=== PATIENT | female | born 1960 | race Caucasian/White ===

== ENCOUNTER 2021-05-15 19:29 | Inpatient (IN) ==
[2021-05-15 20:06] LABS: Basophils # 0.1 K/mcL (0.0-0.2); Basophils % 0.5 %; Eosinophils # 0.1 K/mcL (0.0-0.6); Eosinophils % 0.4 %; Hematocrit 35.3 % (35.3-44.9); Hemoglobin 11.1 g/dL (11.5-15.4); Immature Granulocytes % 1.7 % (0-4); Lymphocytes # 4.2 K/mcL (0.6-4.6); Lymphocytes % 28.1 %; Mean Corpuscular HGB Conc 31.4 g/dL (31.6-35.5); Mean Corpuscular Hemoglobin 26.4 pg (28.0-33.3); Mean Platelet Volume 10.8 fL (9.4-12.4); Monocytes # 1.6 K/mcL (0.0-1.3); Monocytes % 10.8 %; Neutrophils # 8.7 K/mcL (1.6-8.9); Nucleated Red Blood Cells 0.8 /100 WBC (0); Platelet Count 329 K/mcL (140-400); Red Cell Distribution Width 20.1 % (11.5-14.5); Segmented Neutrophils % 58.5 %; White Blood Count 14.8 K/mcL (4.3-11.1)
[2021-05-15 20:14] LABS: INR 1.7; Prothrombin Time 18.5 Seconds (9.4-12.1)
[2021-05-15 20:17] LABS: VBG HCO3 31 mEq/L (21-27); VBG PCO2 42 mmHg (41-51); VBG PH 7.48 pH Units (7.32-7.42); VBG PO2 141 mmHg (25-50)
[2021-05-15 20:17] LABS: Activated Partial Thrombo Time 31.2 Seconds (26.0-36.0)
[2021-05-15 20:34] LABS: Alanine Aminotransferase 86 Units/L (7-52); Albumin/Globulin Ratio 0.7 (1.1-2.2); Alkaline Phosphatase 122 Units/L (34-104); Aspartate Amino Transferase 43 Units/L (13-39); BUN/Creatinine Ratio 12 (6-26); Bilirubin,Direct 0.6 mg/dL (0.0-0.2); Bilirubin,Indirect 0.6 mg/dL (0.0-1.0); Bilirubin,Total 1.2 mg/dL (0.3-1.0); Blood Urea Nitrogen 10 mg/dL (6-20); Calcium 8.2 mg/dL (8.6-10.3); Carbon Dioxide 31 mEq/L (23-29); Chloride 95 mEq/L (98-107); Globulin 4.4 g/dL (2.4-3.5); Glucose 131 mg/dL (70-105); Osmolality,Calculated 281 (280-300); Potassium 3.3 mEq/L (3.5-5.1); Sodium 135 mEq/L (136-145); Total Protein 7.4 g/dL (6.4-8.9); Troponin I 0.39 ng/mL (< 0.04); eGFR For African Americans > 60 (> 60); eGFR For Non-African Americans > 60 (> 60)
[2021-05-15] MEDS ORDERED: Furosemide 40 MG/4 ML VIAL IVP ONE (21:00)
[2021-05-15 21:02] LABS: Influenza A PCR Negative (Negative); Influenza B PCR Negative (Negative); Resp. Syncytial Virus PCR Negative (Negative)
[2021-05-15 21:11] LABS: SARS-CoV-2 by PCR (In House) Negative (Negative)
[2021-05-15] MEDS ORDERED: Isovue-370 500 ML BOTTLE IVP ONE (21:17)
[2021-05-15] MEDS ORDERED: Vancomycin 1,500 MG/265 ML IV.SOLN IVPB ONE (23:30)
[2021-05-15] MEDS ORDERED: *HR* Heparin 5,000 UNIT/ML VIAL IVP ONE (23:31)
[2021-05-15] MEDS ORDERED: *HR* Heparin 5,000 UNIT/ML VIAL IVP PRN ×2 (23:31)
[2021-05-16] MEDS ORDERED: Naloxone 0.4 MG/ML INJ IVP PRN (01:11)
[2021-05-16] MEDS ORDERED: Perflutren Lipid Microsphere 1.3 ML in 0.9 % Sodium Chloride 8.7 ML IVP PRN (01:56)
[2021-05-16] MEDS: Heparin 25,000UNIT/250ML 1/2NS 25,000 UNIT/250 ML IV.SOLN IVC SCH (02:05)
[2021-05-16] MEDS ORDERED: *HR* Labetalol 20 MG/4 ML SYRINGE IVP PRN (03:17)
[2021-05-16] MEDS ORDERED: *HR* Metoprolol 5 MG/5 ML VIAL IVP ONE ×4 (03:24→04:14)
[2021-05-16] MEDS ORDERED: *HR* Adenosine 6 MG/2 ML SYRINGE IVP ONE ×6 (03:27→04:30)
[2021-05-16 03:29] LABS: Basophils # 0.1 K/mcL (0.0-0.2); Basophils % 0.4 %; Eosinophils # 0.1 K/mcL (0.0-0.6); Eosinophils % 0.5 %; Hematocrit 34.3 % (35.3-44.9); Hemoglobin 10.8 g/dL (11.5-15.4); Immature Granulocytes % 1.7 % (0-4); Lymphocytes # 4.2 K/mcL (0.6-4.6); Lymphocytes % 26.7 %; Mean Corpuscular HGB Conc 31.5 g/dL (31.6-35.5); Mean Corpuscular Hemoglobin 26.1 pg (28.0-33.3); Mean Corpuscular Volume 82.9 fL (83.0-100.0); Mean Platelet Volume 10.2 fL (9.4-12.4); Monocytes # 1.5 K/mcL (0.0-1.3); Monocytes % 9.4 %; Neutrophils # 9.6 K/mcL (1.6-8.9); Nucleated Red Blood Cells 0.8 /100 WBC (0); Platelet Count 307 K/mcL (140-400); Red Blood Count 4.14 M/mcL (3.82-4.97); Segmented Neutrophils % 61.3 %; White Blood Count 15.6 K/mcL (4.3-11.1)
[2021-05-16 03:48] LABS: BUN/Creatinine Ratio 11 (6-26); Blood Urea Nitrogen 9 mg/dL (6-20); Calcium 8.2 mg/dL (8.6-10.3); Carbon Dioxide 33 mEq/L (23-29); Chloride 95 mEq/L (98-107); Glucose 103 mg/dL (70-105); Magnesium 1.4 mg/dL (1.6-2.6); Osmolality,Calculated 285 (280-300); Sodium 138 mEq/L (136-145); eGFR For African Americans > 60 (> 60); eGFR For Non-African Americans > 60 (> 60)
[2021-05-16 03:49] LABS: Chol/HDL Ratio 4.2 (0-4.9); Cholesterol 138 mg/dL (< 200); HDL Cholesterol 33 mg/dL (40-59); LDL Cholesterol,Calculated 85 mg/dL (< 100); Phosphorous 2.4 mg/dL (2.7-4.5); Triglycerides 98 mg/dL (< 150)
[2021-05-16] MEDS: DilTIAZem 50 MG/50 ML IV.SOLN IVC SCH ×2 (04:08→09:31)
[2021-05-16 06:20] LABS: % Iron Saturation 16 % (15-50); Iron 51 mcg/dL (50-170); Transferrin 221 mg/dL (203-362)
[2021-05-16 06:46] LABS: Folate 4.5 ng/mL (3.0-16.0)
[2021-05-16] MEDS ORDERED: Potassium Phosphate 44 MEQ in 0.9 % Sodium Chloride 250 ML IVPB ONE (07:28)
[2021-05-16] MEDS ORDERED: cefTRIAXone 2,000 MG in 0.9 % Sodium Chloride Mini Bag 100 ML IVPB SCH (09:00)
[2021-05-16] MEDS: Furosemide 40 MG/4 ML VIAL IVP SCH (09:29)
[2021-05-16] MEDS: Acetaminophen 325 MG TABLET PO PRN (14:23)
[2021-05-16 18:03] LABS: ABG Base Excess 9 mEq/L (-2 to 3); ABG HCO3 34 mEq/L (21-27); ABG Oxygen Saturation 91 % (95-98); ABG PCO2 45 mmHg (35-45); ABG PH 7.48 pH Units (7.32-7.45); ABG PO2 57 mmHg (85-104); ABG TCO2 35 mEq/L (20-26)
[2021-05-16] MEDS: Potassium Chloride Elixir 20 MEQ/15 ML UDC PO SCH (20:57)
[2021-05-16] MEDS ORDERED: *HR* LORazepam 0.5 MG TABLET PO ONE (21:36)
[2021-05-17] MEDS: Heparin 25,000UNIT/250ML 1/2NS 25,000 UNIT/250 ML IV.SOLN IVC SCH (00:15)
[2021-05-17] MEDS: Melatonin 3 MG TABLET PO PRN (01:46)
[2021-05-17] MEDS ORDERED: *HR* LORazepam 1 MG TABLET PO ONE (03:02)
[2021-05-17 05:09] LABS: Hematocrit 33.4 % (35.3-44.9); Hemoglobin 10.6 g/dL (11.5-15.4); Mean Corpuscular HGB Conc 31.7 g/dL (31.6-35.5); Mean Corpuscular Hemoglobin 26.8 pg (28.0-33.3); Mean Corpuscular Volume 84.6 fL (83.0-100.0); Platelet Count 309 K/mcL (140-400); Red Blood Count 3.95 M/mcL (3.82-4.97); Red Cell Distribution Width 20.1 % (11.5-14.5); White Blood Count 18.3 K/mcL (4.3-11.1)
[2021-05-17 05:27] LABS: BUN/Creatinine Ratio 14 (6-26); Blood Urea Nitrogen 13 mg/dL (6-20); Calcium 8.2 mg/dL (8.6-10.3); Carbon Dioxide 31 mEq/L (23-29); Chloride 97 mEq/L (98-107); Glucose 119 mg/dL (70-105); Osmolality,Calculated 285 (280-300); Potassium 3.4 mEq/L (3.5-5.1); Sodium 137 mEq/L (136-145); eGFR For African Americans > 60 (> 60); eGFR For Non-African Americans > 60 (> 60)
[2021-05-17] MEDS: Haloperidol Lactate 5 MG/ML VIAL IVP PRN (09:04)
[2021-05-17] MEDS: Potassium Chloride Elixir 20 MEQ/15 ML UDC PO SCH ×2 (09:04→21:42)
[2021-05-17] MEDS: Furosemide 40 MG/4 ML VIAL IVP SCH (09:05)
[2021-05-17] MEDS: Piperacillin/Tazobactam 3.375 GM in 0.9 % Sodium Chloride Mini Bag 100 ML IVPB SCH ×3 (09:06→23:49)
[2021-05-17] MEDS: *HR* Metoprolol 5 MG/5 ML VIAL IVP SCH ×3 (11:11→23:49)
[2021-05-17] MEDS: *HR* Enoxaparin 100 MG/ML SYRINGE SQ SCH ×2 (11:12→18:04)
[2021-05-17 16:06] LABS: Bilirubin,Urine Negative (Negative); Blood,Urine Negative (Negative); Clarity,Urine Clear (Clear); Color,Urine Colorless (Yellow); Glucose,Urine (UA) Normal (Normal); Ketones,Urine Negative (Negative); Leukocyte Esterase,Urine Negative (Negative); Nitrite,Urine Negative (Negative); Protein,Urine Trace mg/dL (Neg-Trace); Specific Gravity,Urine 1.009 (1.010-1.025); Urobilinogen,Urine Normal (Normal)
[2021-05-18 01:11] LABS: Basophils # 0.1 K/mcL (0.0-0.2); Basophils % 0.5 %; Eosinophils # 0.3 K/mcL (0.0-0.6); Eosinophils % 2.4 %; Hematocrit 31.6 % (35.3-44.9); Hemoglobin 9.8 g/dL (11.5-15.4); Immature Granulocytes % 2.1 % (0-4); Lymphocytes # 2.9 K/mcL (0.6-4.6); Lymphocytes % 20.7 %; Mean Corpuscular Hemoglobin 26.5 pg (28.0-33.3); Mean Corpuscular Volume 85.4 fL (83.0-100.0); Mean Platelet Volume 10.3 fL (9.4-12.4); Monocytes # 1.2 K/mcL (0.0-1.3); Monocytes % 8.5 %; Neutrophils # 9.2 K/mcL (1.6-8.9); Nucleated Red Blood Cells 0.6 /100 WBC (0); Platelet Count 252 K/mcL (140-400); Red Cell Distribution Width 20.1 % (11.5-14.5); Segmented Neutrophils % 65.8 %; White Blood Count 13.9 K/mcL (4.3-11.1)
[2021-05-18] MEDS ORDERED: Isovue-370 500 ML BOTTLE IVP ONE (01:55)
[2021-05-18 03:45] LABS: Alanine Aminotransferase 61 Units/L (7-52); Albumin 2.4 g/dL (3.5-5.7); Albumin/Globulin Ratio 0.6 (1.1-2.2); Alkaline Phosphatase 92 Units/L (34-104); Aspartate Amino Transferase 31 Units/L (13-39); BUN/Creatinine Ratio 13 (6-26); Bilirubin,Total 1.1 mg/dL (0.3-1.0); Blood Urea Nitrogen 10 mg/dL (6-20); Calcium 7.6 mg/dL (8.6-10.3); Carbon Dioxide 31 mEq/L (23-29); Chloride 99 mEq/L (98-107); Globulin 3.8 g/dL (2.4-3.5); Glucose 107 mg/dL (70-105); Osmolality,Calculated 292 (280-300); Potassium 3.7 mEq/L (3.5-5.1); Sodium 141 mEq/L (136-145); Total Protein 6.2 g/dL (6.4-8.9); eGFR For African Americans > 60 (> 60); eGFR For Non-African Americans > 60 (> 60)
[2021-05-18] MEDS: *HR* Enoxaparin 100 MG/ML SYRINGE SQ SCH ×2 (06:04→16:43)
[2021-05-18] MEDS: *HR* Metoprolol 5 MG/5 ML VIAL IVP SCH (06:04)
[2021-05-18] MEDS: Piperacillin/Tazobactam 3.375 GM in 0.9 % Sodium Chloride Mini Bag 100 ML IVPB SCH ×2 (07:42→16:10)
[2021-05-18] MEDS: Potassium Chloride Elixir 20 MEQ/15 ML UDC PO SCH ×2 (08:07→20:17)
[2021-05-18] MEDS: Furosemide 40 MG/4 ML VIAL IVP SCH (08:07)
[2021-05-18] MEDS: Albumin 25% 25gram/100mL 25 GM/100 ML IV.SOLN IVPB SCH ×2 (08:12→09:36)
[2021-05-18] MEDS: Haloperidol Lactate 5 MG/ML VIAL IVP PRN (10:55)
[2021-05-18] MEDS: lisinopriL 5 MG TABLET PO SCH (12:01)
[2021-05-18] MEDS: Metoprolol XL (24 HR) Succ 50 MG TAB.ER.24H PO SCH ×2 (12:01→20:17)
[2021-05-18] MEDS ORDERED: *HR* LORazepam 2 MG/ML VIAL ONE (21:30)
[2021-05-18] MEDS ORDERED: *HR* LORazepam 2 MG/ML VIAL IVP ONE (21:30)
[2021-05-18 22:37] LABS: ABG Base Excess 13 mEq/L (-2 to 3); ABG HCO3 41 mEq/L (21-27); ABG Oxygen Saturation 100 % (95-98); ABG PCO2 71 mmHg (35-45); ABG PH 7.37 pH Units (7.32-7.45); ABG PO2 392 mmHg (85-104); ABG TCO2 43 mEq/L (20-26)
[2021-05-19] MEDS: Albumin 25% 25gram/100mL 25 GM/100 ML IV.SOLN IVPB SCH (00:43)
[2021-05-19] MEDS: Piperacillin/Tazobactam 3.375 GM in 0.9 % Sodium Chloride Mini Bag 100 ML IVPB SCH ×4 (00:44→23:03)
[2021-05-19 04:10] LABS: Basophils % 0.5 %; Eosinophils # 0.3 K/mcL (0.0-0.6); Eosinophils % 3.4 %; Hematocrit 31.8 % (35.3-44.9); Hemoglobin 9.3 g/dL (11.5-15.4); Immature Granulocytes % 1.2 % (0-4); Lymphocytes # 2.1 K/mcL (0.6-4.6); Lymphocytes % 24.2 %; Mean Corpuscular HGB Conc 29.2 g/dL (31.6-35.5); Mean Corpuscular Hemoglobin 25.9 pg (28.0-33.3); Mean Corpuscular Volume 88.6 fL (83.0-100.0); Mean Platelet Volume 10.2 fL (9.4-12.4); Monocytes # 0.8 K/mcL (0.0-1.3); Monocytes % 9.6 %; Neutrophils # 5.3 K/mcL (1.6-8.9); Nucleated Red Blood Cells 0.2 /100 WBC (0); Platelet Count 232 K/mcL (140-400); Red Blood Count 3.59 M/mcL (3.82-4.97); Red Cell Distribution Width 20.6 % (11.5-14.5); Segmented Neutrophils % 61.1 %; White Blood Count 8.6 K/mcL (4.3-11.1)
[2021-05-19 04:28] LABS: Alanine Aminotransferase 53 Units/L (7-52); Albumin 3.4 g/dL (3.5-5.7); Alkaline Phosphatase 79 Units/L (34-104); Aspartate Amino Transferase 27 Units/L (13-39); BUN/Creatinine Ratio 11 (6-26); Bilirubin,Total 1.1 mg/dL (0.3-1.0); Blood Urea Nitrogen 8 mg/dL (6-20); Calcium 7.8 mg/dL (8.6-10.3); Carbon Dioxide 36 mEq/L (23-29); Chloride 98 mEq/L (98-107); Globulin 3.5 g/dL (2.4-3.5); Glucose 90 mg/dL (70-105); Osmolality,Calculated 290 (280-300); Potassium 3.5 mEq/L (3.5-5.1); Sodium 141 mEq/L (136-145); Total Protein 6.9 g/dL (6.4-8.9); eGFR For African Americans > 60 (> 60); eGFR For Non-African Americans > 60 (> 60)
[2021-05-19] MEDS: *HR* Enoxaparin 100 MG/ML SYRINGE SQ SCH (05:07)
[2021-05-19] MEDS: Furosemide 40 MG/4 ML VIAL IVP SCH ×2 (08:07→21:28)
[2021-05-19] MEDS: lisinopriL 5 MG TABLET PO SCH (08:08)
[2021-05-19] MEDS: Metoprolol XL (24 HR) Succ 50 MG TAB.ER.24H PO SCH ×2 (08:08→21:28)
[2021-05-19] MEDS: Potassium Chloride Elixir 20 MEQ/15 ML UDC PO SCH ×2 (09:00→21:28)
[2021-05-19] MEDS: *HR* Heparin 5,000 UNIT/ML VIAL SQ SCH (16:45)
[2021-05-19] MEDS: Haloperidol Lactate 5 MG/ML VIAL IVP PRN ×2 (17:58→23:03)
[2021-05-19] MEDS: *HR* Labetalol 20 MG/4 ML SYRINGE IVP PRN (23:03)
[2021-05-20] MEDS: Haloperidol Lactate 5 MG/ML VIAL IVP PRN (03:40)
[2021-05-20] MEDS: *HR* Heparin 5,000 UNIT/ML VIAL SQ SCH ×2 (05:17→17:12)
[2021-05-20 05:26] LABS: Basophils # 0.1 K/mcL (0.0-0.2); Basophils % 0.5 %; Eosinophils # 0.2 K/mcL (0.0-0.6); Eosinophils % 1.9 %; Hematocrit 35.4 % (35.3-44.9); Hemoglobin 10.6 g/dL (11.5-15.4); Lymphocytes # 2.6 K/mcL (0.6-4.6); Lymphocytes % 22.3 %; Mean Corpuscular HGB Conc 29.9 g/dL (31.6-35.5); Mean Corpuscular Hemoglobin 26.8 pg (28.0-33.3); Mean Corpuscular Volume 89.4 fL (83.0-100.0); Mean Platelet Volume 10.3 fL (9.4-12.4); Monocytes # 1.2 K/mcL (0.0-1.3); Monocytes % 10.1 %; Neutrophils # 7.6 K/mcL (1.6-8.9); Nucleated Red Blood Cells 0.3 /100 WBC (0); Platelet Count 242 K/mcL (140-400); Red Blood Count 3.96 M/mcL (3.82-4.97); Red Cell Distribution Width 21.2 % (11.5-14.5); Segmented Neutrophils % 64.2 %; White Blood Count 11.8 K/mcL (4.3-11.1)
[2021-05-20 05:46] LABS: Alanine Aminotransferase 64 Units/L (7-52); Albumin 3.5 g/dL (3.5-5.7); Albumin/Globulin Ratio 0.9 (1.1-2.2); Alkaline Phosphatase 93 Units/L (34-104); Aspartate Amino Transferase 34 Units/L (13-39); BUN/Creatinine Ratio 9 (6-26); Bilirubin,Total 1.4 mg/dL (0.3-1.0); Blood Urea Nitrogen 8 mg/dL (6-20); Calcium 8.1 mg/dL (8.6-10.3); Carbon Dioxide 38 mEq/L (23-29); Chloride 96 mEq/L (98-107); Globulin 3.9 g/dL (2.4-3.5); Glucose 107 mg/dL (70-105); Osmolality,Calculated 291 (280-300); Potassium 3.9 mEq/L (3.5-5.1); Sodium 141 mEq/L (136-145); Total Protein 7.4 g/dL (6.4-8.9); eGFR For African Americans > 60 (> 60); eGFR For Non-African Americans > 60 (> 60)
[2021-05-20] MEDS: Furosemide 40 MG/4 ML VIAL IVP SCH ×2 (08:57→20:06)
[2021-05-20] MEDS: Metoprolol XL (24 HR) Succ 50 MG TAB.ER.24H PO SCH ×2 (08:58→20:06)
[2021-05-20] MEDS: lisinopriL 5 MG TABLET PO SCH (08:58)
[2021-05-20] MEDS: Potassium Chloride Elixir 20 MEQ/15 ML UDC PO SCH ×2 (08:59→20:06)
[2021-05-20] MEDS: Piperacillin/Tazobactam 3.375 GM in 0.9 % Sodium Chloride Mini Bag 100 ML IVPB SCH ×3 (09:17→23:54)
[2021-05-20] MEDS: Aspirin 81 MG TAB.CHEW PO SCH (11:00)
[2021-05-20] MEDS: Melatonin 3 MG TABLET PO PRN (22:51)
[2021-05-21] MEDS: *HR* Heparin 5,000 UNIT/ML VIAL SQ SCH ×2 (05:51→17:41)
[2021-05-21] MEDS: Piperacillin/Tazobactam 3.375 GM in 0.9 % Sodium Chloride Mini Bag 100 ML IVPB SCH ×2 (07:43→15:23)
[2021-05-21] MEDS: Furosemide 40 MG/4 ML VIAL IVP SCH ×2 (07:43→21:26)
[2021-05-21] MEDS: Metoprolol XL (24 HR) Succ 50 MG TAB.ER.24H PO SCH ×2 (07:43→21:26)
[2021-05-21] MEDS: lisinopriL 5 MG TABLET PO SCH (07:43)
[2021-05-21] MEDS: Aspirin 81 MG TAB.CHEW PO SCH (07:43)
[2021-05-21] MEDS: Potassium Chloride Elixir 20 MEQ/15 ML UDC PO SCH ×2 (07:44→21:26)
[2021-05-21 07:50] LABS: Basophils # 0.1 K/mcL (0.0-0.2); Basophils % 0.6 %; Eosinophils # 0.2 K/mcL (0.0-0.6); Eosinophils % 1.4 %; Hematocrit 36.5 % (35.3-44.9); Hemoglobin 11.1 g/dL (11.5-15.4); Immature Granulocytes % 0.9 % (0-4); Lymphocytes # 3.3 K/mcL (0.6-4.6); Lymphocytes % 26.1 %; Mean Corpuscular HGB Conc 30.4 g/dL (31.6-35.5); Mean Corpuscular Hemoglobin 26.6 pg (28.0-33.3); Mean Corpuscular Volume 87.5 fL (83.0-100.0); Mean Platelet Volume 10.4 fL (9.4-12.4); Monocytes # 1.2 K/mcL (0.0-1.3); Monocytes % 9.7 %; Neutrophils # 7.8 K/mcL (1.6-8.9); Nucleated Red Blood Cells 0.2 /100 WBC (0); Platelet Count 292 K/mcL (140-400); Red Blood Count 4.17 M/mcL (3.82-4.97); Red Cell Distribution Width 21.6 % (11.5-14.5); Segmented Neutrophils % 61.3 %; White Blood Count 12.7 K/mcL (4.3-11.1)
[2021-05-21 08:07] LABS: BUN/Creatinine Ratio 10 (6-26); Blood Urea Nitrogen 9 mg/dL (6-20); Calcium 8.4 mg/dL (8.6-10.3); Carbon Dioxide 34 mEq/L (23-29); Chloride 95 mEq/L (98-107); Glucose 92 mg/dL (70-105); Magnesium 1.4 mg/dL (1.6-2.6); Osmolality,Calculated 286 (280-300); Potassium 4.3 mEq/L (3.5-5.1); Sodium 139 mEq/L (136-145); eGFR For African Americans > 60 (> 60); eGFR For Non-African Americans > 60 (> 60)
[2021-05-21] MEDS: lisinopriL 10 MG TABLET PO SCH (09:01)
[2021-05-21] MEDS: *HR* Labetalol 20 MG/4 ML SYRINGE IVP PRN (11:55)
[2021-05-21] MEDS: Haloperidol Lactate 5 MG/ML VIAL IVP PRN ×2 (12:59→21:27)
[2021-05-21] MEDS ORDERED: *HR* FentaNYL (PF) 100 MCG/2 ML VIAL ONE (14:41)
[2021-05-21] MEDS ORDERED: ISOVUE-370 200 ML INFUS..BTL ONE (14:42)
[2021-05-21] MEDS ORDERED: *HR* Heparin 10,000 UNIT/10 ML VIAL ONE (14:42)
[2021-05-21] MEDS ORDERED: *HR* Midazolam HCl 2 MG/2 ML VIAL ONE (14:42)
[2021-05-21] MEDS ORDERED: 0.9 % Sodium Chloride 1,000 ML ONE ×2 (14:42→14:51)
[2021-05-21] MEDS ORDERED: Heparin 1,000 UNITS/500 mL 500 ML ONE (14:42)
[2021-05-21] MEDS ORDERED: Nitroglycerin 1,000 MCG/5 ML VIAL IV ONE (14:42)
[2021-05-22] MEDS: Piperacillin/Tazobactam 3.375 GM in 0.9 % Sodium Chloride Mini Bag 100 ML IVPB SCH ×3 (00:20→17:21)
[2021-05-22] MEDS: Acetaminophen 325 MG TABLET PO PRN ×2 (02:13→18:05)
[2021-05-22 04:58] LABS: Basophils # 0.1 K/mcL (0.0-0.2); Basophils % 0.7 %; Eosinophils # 0.2 K/mcL (0.0-0.6); Eosinophils % 1.8 %; Hemoglobin 10.2 g/dL (11.5-15.4); Immature Granulocytes % 0.8 % (0-4); Lymphocytes # 3.3 K/mcL (0.6-4.6); Lymphocytes % 28.3 %; Mean Corpuscular Hemoglobin 26.2 pg (28.0-33.3); Mean Corpuscular Volume 87.4 fL (83.0-100.0); Mean Platelet Volume 10.7 fL (9.4-12.4); Monocytes # 1.2 K/mcL (0.0-1.3); Monocytes % 10.4 %; Neutrophils # 6.8 K/mcL (1.6-8.9); Nucleated Red Blood Cells 0.2 /100 WBC (0); Platelet Count 282 K/mcL (140-400); Red Blood Count 3.89 M/mcL (3.82-4.97); Red Cell Distribution Width 21.5 % (11.5-14.5); White Blood Count 11.7 K/mcL (4.3-11.1)
[2021-05-22 05:16] LABS: BUN/Creatinine Ratio 11 (6-26); Blood Urea Nitrogen 10 mg/dL (6-20); Carbon Dioxide 38 mEq/L (23-29); Chloride 96 mEq/L (98-107); Glucose 101 mg/dL (70-105); Magnesium 1.6 mg/dL (1.6-2.6); Osmolality,Calculated 289 (280-300); Potassium 3.7 mEq/L (3.5-5.1); Sodium 140 mEq/L (136-145); eGFR For African Americans > 60 (> 60); eGFR For Non-African Americans > 60 (> 60)
[2021-05-22] MEDS: Furosemide 40 MG/4 ML VIAL IVP SCH (07:57)
[2021-05-22] MEDS: lisinopriL 10 MG TABLET PO SCH (07:58)
[2021-05-22] MEDS: Aspirin 81 MG TAB.CHEW PO SCH (07:58)
[2021-05-22] MEDS: Metoprolol XL (24 HR) Succ 50 MG TAB.ER.24H PO SCH ×2 (07:58→21:07)
[2021-05-22] MEDS: Potassium Chloride Elixir 20 MEQ/15 ML UDC PO SCH ×2 (07:58→21:06)
[2021-05-22] MEDS: *HR* Heparin 5,000 UNIT/ML VIAL SQ SCH ×2 (08:01→18:04)
[2021-05-22 12:03] LABS: ABG Base Excess 8 mEq/L (-2 to 3); ABG HCO3 35 mEq/L (21-27); ABG Oxygen Saturation 100 % (95-98); ABG PCO2 56 mmHg (35-45); ABG PO2 193 mmHg (85-104); ABG TCO2 37 mEq/L (20-26)
[2021-05-22 12:27] LABS: Thyroid Stimulating Hormone 11.22 mcIU/mL (0.340-5.600)
[2021-05-22] MEDS: Melatonin 3 MG TABLET PO PRN (21:07)
[2021-05-23] MEDS ORDERED: Morphine Sulfate 2 MG/ML SYRINGE IVP ONE (00:39)
[2021-05-23] MEDS: Piperacillin/Tazobactam 3.375 GM in 0.9 % Sodium Chloride Mini Bag 100 ML IVPB SCH ×3 (00:47→16:47)
[2021-05-23] MEDS: Acetaminophen 325 MG TABLET PO PRN ×3 (05:06→23:58)
[2021-05-23] MEDS: *HR* Heparin 5,000 UNIT/ML VIAL SQ SCH ×2 (05:07→16:47)
[2021-05-23 07:00] LABS: Basophils # 0.1 K/mcL (0.0-0.2); Basophils % 0.7 %; Eosinophils # 0.3 K/mcL (0.0-0.6); Eosinophils % 1.9 %; Hematocrit 36.7 % (35.3-44.9); Hemoglobin 11.2 g/dL (11.5-15.4); Immature Granulocytes % 0.7 % (0-4); Lymphocytes # 4.4 K/mcL (0.6-4.6); Lymphocytes % 32.7 %; Mean Corpuscular HGB Conc 30.5 g/dL (31.6-35.5); Mean Corpuscular Volume 88.4 fL (83.0-100.0); Mean Platelet Volume 10.5 fL (9.4-12.4); Monocytes # 1.3 K/mcL (0.0-1.3); Monocytes % 9.9 %; Neutrophils # 7.2 K/mcL (1.6-8.9); Nucleated Red Blood Cells 0.1 /100 WBC (0); Platelet Count 331 K/mcL (140-400); Red Blood Count 4.15 M/mcL (3.82-4.97); Red Cell Distribution Width 21.9 % (11.5-14.5); Segmented Neutrophils % 54.1 %; White Blood Count 13.4 K/mcL (4.3-11.1)
[2021-05-23 07:47] LABS: BUN/Creatinine Ratio 11 (6-26); Blood Urea Nitrogen 12 mg/dL (6-20); Calcium 8.8 mg/dL (8.6-10.3); Carbon Dioxide 34 mEq/L (23-29); Chloride 94 mEq/L (98-107); Glucose 102 mg/dL (70-105); Magnesium 2.1 mg/dL (1.6-2.6); Osmolality,Calculated 280 (280-300); Potassium 4.9 mEq/L (3.5-5.1); Sodium 135 mEq/L (136-145); eGFR For African Americans > 60 (> 60); eGFR For Non-African Americans 53 (> 60)
[2021-05-23] MEDS: Aspirin 81 MG TAB.CHEW PO SCH (08:04)
[2021-05-23] MEDS: Metoprolol XL (24 HR) Succ 50 MG TAB.ER.24H PO SCH ×2 (08:04→20:55)
[2021-05-23] MEDS: lisinopriL 10 MG TABLET PO SCH (08:04)
[2021-05-23] MEDS: Potassium Chloride Elixir 20 MEQ/15 ML UDC PO SCH ×2 (08:05→20:56)
[2021-05-23] MEDS ORDERED: *HR* Metoprolol 5 MG/5 ML VIAL IVP PRN (08:07)
[2021-05-23] MEDS ORDERED: Furosemide 40 MG/4 ML VIAL IVP SCH (09:00)
[2021-05-23] MEDS: lisinopriL 20 MG TABLET PO SCH (10:21)
[2021-05-23] MEDS: Furosemide 40 MG/4 ML VIAL IVP SCH ×2 (16:47)
[2021-05-23] MEDS: QUEtiapine Fumarate 25 MG TABLET PO SCH (20:55)
[2021-05-23] MEDS: Melatonin 3 MG TABLET PO PRN (20:56)
[2021-05-23] MEDS: Haloperidol Lactate 5 MG/ML VIAL IVP PRN (20:56)
[2021-05-24] MEDS: Haloperidol Lactate 5 MG/ML VIAL IVP PRN (03:03)
[2021-05-24] MEDS: *HR* Heparin 5,000 UNIT/ML VIAL SQ SCH ×2 (05:38→17:48)
[2021-05-24 07:05] LABS: Basophils # 0.1 K/mcL (0.0-0.2); Basophils % 0.9 %; Eosinophils # 0.4 K/mcL (0.0-0.6); Eosinophils % 3.3 %; Hematocrit 34.8 % (35.3-44.9); Hemoglobin 10.9 g/dL (11.5-15.4); Immature Granulocytes % 0.6 % (0-4); Lymphocytes # 3.6 K/mcL (0.6-4.6); Lymphocytes % 32.3 %; Mean Corpuscular HGB Conc 31.3 g/dL (31.6-35.5); Mean Corpuscular Hemoglobin 27.1 pg (28.0-33.3); Mean Corpuscular Volume 86.6 fL (83.0-100.0); Mean Platelet Volume 10.6 fL (9.4-12.4); Monocytes % 8.9 %; Platelet Count 300 K/mcL (140-400); Red Blood Count 4.02 M/mcL (3.82-4.97); Red Cell Distribution Width 21.3 % (11.5-14.5)
[2021-05-24 07:34] LABS: BUN/Creatinine Ratio 13 (6-26); Blood Urea Nitrogen 13 mg/dL (6-20); Calcium 8.8 mg/dL (8.6-10.3); Carbon Dioxide 36 mEq/L (23-29); Chloride 95 mEq/L (98-107); Glucose 94 mg/dL (70-105); Magnesium 1.8 mg/dL (1.6-2.6); Osmolality,Calculated 288 (280-300); Potassium 3.9 mEq/L (3.5-5.1); Sodium 139 mEq/L (136-145); eGFR For African Americans > 60 (> 60); eGFR For Non-African Americans 56 (> 60)
[2021-05-24] MEDS: Potassium Chloride Elixir 20 MEQ/15 ML UDC PO SCH ×2 (10:18→21:23)
[2021-05-24] MEDS: lisinopriL 20 MG TABLET PO SCH (10:18)
[2021-05-24] MEDS: Acetaminophen 325 MG TABLET PO PRN (10:18)
[2021-05-24] MEDS: Aspirin 81 MG TAB.CHEW PO SCH (10:18)
[2021-05-24] MEDS: Metoprolol XL (24 HR) Succ 50 MG TAB.ER.24H PO SCH ×2 (10:18→21:23)
[2021-05-24] MEDS: Furosemide 40 MG/4 ML VIAL IVP SCH (10:21)
[2021-05-24] MEDS: QUEtiapine Fumarate 25 MG TABLET PO SCH (21:23)
[2021-05-24] MEDS: Melatonin 3 MG TABLET PO PRN (21:26)
[2021-05-25 03:30] LABS: Basophils # 0.1 K/mcL (0.0-0.2); Basophils % 0.8 %; Eosinophils # 0.4 K/mcL (0.0-0.6); Eosinophils % 3.5 %; Hematocrit 35.5 % (35.3-44.9); Hemoglobin 10.8 g/dL (11.5-15.4); Immature Granulocytes % 0.5 % (0-4); Lymphocytes # 3.1 K/mcL (0.6-4.6); Lymphocytes % 30.6 %; Mean Corpuscular HGB Conc 30.4 g/dL (31.6-35.5); Mean Corpuscular Hemoglobin 26.6 pg (28.0-33.3); Mean Corpuscular Volume 87.4 fL (83.0-100.0); Mean Platelet Volume 10.7 fL (9.4-12.4); Monocytes # 1.2 K/mcL (0.0-1.3); Monocytes % 11.6 %; Neutrophils # 5.4 K/mcL (1.6-8.9); Nucleated Red Blood Cells 0.2 /100 WBC (0); Platelet Count 355 K/mcL (140-400); Red Blood Count 4.06 M/mcL (3.82-4.97); Red Cell Distribution Width 21.6 % (11.5-14.5); White Blood Count 10.1 K/mcL (4.3-11.1)
[2021-05-25 03:47] LABS: BUN/Creatinine Ratio 15 (6-26); Blood Urea Nitrogen 12 mg/dL (6-20); Calcium 9.3 mg/dL (8.6-10.3); Carbon Dioxide 36 mEq/L (23-29); Chloride 96 mEq/L (98-107); Glucose 73 mg/dL (70-105); Magnesium 1.9 mg/dL (1.6-2.6); Osmolality,Calculated 282 (280-300); Potassium 4.8 mEq/L (3.5-5.1); Sodium 137 mEq/L (136-145); eGFR For African Americans > 60 (> 60); eGFR For Non-African Americans > 60 (> 60)
[2021-05-25] MEDS: Acetaminophen 325 MG TABLET PO PRN ×3 (05:06→23:33)
[2021-05-25] MEDS: *HR* Heparin 5,000 UNIT/ML VIAL SQ SCH ×2 (05:14→18:28)
[2021-05-25] MEDS: Potassium Chloride Elixir 20 MEQ/15 ML UDC PO SCH (08:25)
[2021-05-25] MEDS: lisinopriL 20 MG TABLET PO SCH (08:25)
[2021-05-25] MEDS: Metoprolol XL (24 HR) Succ 50 MG TAB.ER.24H PO SCH ×2 (08:25→20:21)
[2021-05-25] MEDS: Aspirin 81 MG TAB.CHEW PO SCH (08:25)
[2021-05-25] MEDS: Furosemide 40 MG/4 ML VIAL IVP SCH (08:26)
[2021-05-25 14:45] LABS: Triiodothyronine (T3) Free 2.25 pg/mL (2.50-3.90)
[2021-05-25] MEDS: QUEtiapine Fumarate 25 MG TABLET PO SCH (20:21)
[2021-05-26] MEDS ORDERED: Methyl Salicylate/Menthol 85 APPL/85 GM TUBE TP PRN (00:23)
[2021-05-26] MEDS: *HR* Heparin 5,000 UNIT/ML VIAL SQ SCH (04:56)
[2021-05-26 07:25] VITALS: BP 140/68; PULSE 75; TEMP 98; O2SAT 92
[2021-05-26] MEDS: lisinopriL 20 MG TABLET PO SCH (08:12)
[2021-05-26] MEDS: Aspirin 81 MG TAB.CHEW PO SCH (08:12)
[2021-05-26] MEDS: Acetaminophen 325 MG TABLET PO PRN (08:12)
[2021-05-26] MEDS: Furosemide 40 MG/4 ML VIAL IVP SCH (08:13)
[2021-05-26] MEDS: Metoprolol XL (24 HR) Succ 50 MG TAB.ER.24H PO SCH (08:13)
[2021-05-26] MEDS ORDERED: Potassium Chloride Elixir 20 MEQ/15 ML UDC PO SCH (09:00)
== END 2021-05-26 16:59 | disposition home or self-care (01) | DRG 871 ==
LOC: EMEROOARM 19:29 → 2NNU 19:29 → 2NENU 05-19 20:24
PROVIDERS: ADMIT Family Medicine; ATTEND Family Medicine